=== PATIENT | male | born 1990 | race Caucasian/White ===

== ENCOUNTER 2018-10-05 17:54 | Emergency (ER) | payer BC, SELFPAY ==
[2018-10-05 17:55] VITALS: BP 138/86; PULSE 77; RESP 15; TEMP 37.2; O2SAT 98; BMI 19.5
[2018-10-05 19:21] VITALS: BP 136/82; PULSE 77; RESP 18; TEMP 37; O2SAT 98
[2018-10-05] MEDS: 0.9% Normal Saline 1,000 ML 150 ML IV (20:06)
[2018-10-05 20:22] LABS: Absolute Neutrophil Count 3.4 X10^3/uL (2.0-7.7); Basophil# 0.04 X10^3/uL; Basophil% 0.7 % (0-1); Eosinophil# 0.11 X10^3/uL; Eosinophils% 1.9 % (0-5); Hematocrit 45.3 % (40-54); Hemoglobin 15.2 g/dl (13.0-16.5); Lymphocyte % 27.6 % (19-41); Mean Corp Hgb Conc 33.6 g/gl (32-36); Mean Corpuscular Hgb 30.5 pg (27.0-32.0); Mean Platelet Vol. 9.1 fl (6.2-12.0); Monocyte# 0.67 X10^3/uL; Monocyte% 11.6 % (0-10); Neutrophil # 3.37 X10^3/uL (2.7-7.7); POSITIVE COUNT NO; POSITIVE DIFFERENTIAL NO; POSITIVE MORPHOLOGY NO; Platelet Count 194 K/mm3 (150-450); RBC Distribution Width CV 13.5 % (11.6-14.6); RBC Distribution Width SD 44.6 fl (35.1-43.9); Red Blood Count 4.98 M/mm3 (4.6-6.2); White Blood Count 5.8 K/mm3 (4.4-11.0)
[2018-10-05 20:33] LABS: Anion Gap 1 (5-15); BUN 15 mg/dL (7-18); BUN/Creat Ratio 16.4 RATIO (10-20); Chloride 105 mmol/L (98-107); Creatinine, Serum 0.92 mg/dL (0.70-1.30); EST Glomerular Filtration Rate 104 mL/min (>60); Est Glom Filt Rate - Afr Amer 125 mL/min (>60); Estimated Creatinine Clearance 103.37 ml/min; Glucose 98 mg/dL (74-106); Sodium Level 138 mmol/L (136-145)
--- NOTE | 2018-10-05 20:42 | ED.RN ---
PHARMACIST STATES WE DO NOT HAVE SPORANOX HERE. DR. GUERIN AWARE.
[2018-10-05 21:00] VITALS: BP 129/76; PULSE 79; RESP 18; TEMP 37; O2SAT 99
--- NOTE | 2018-10-05 21:05 | ED.VISSUMM ---
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 He states he has had worsening infection to the right foot for quite some time but it got a lot worse over the past 1 to 2 weeks. He reports occasional chills. He denies fever. He is not a known diabetic. Physical Examination: Vital signs are unremarkable. He is afebrile. Patient sitting upright in bed no acute distress. He is nontoxic appearing. Heart is regular rate and rhythm. Lung sounds are clear. Abdomen is soft and nontender. Lower extremity examination was mild tinea pedis to the left foot. He has moderate tinea pedis to the right foot with a 6 x 3 cm area of excoriation on the ball of his foot. There is no obvious sign of secondary bacterial infection at this time. Test Results: CBC and chemistry studies are unremarkable. Emergency Department Course and Treatment: Patient is given a dose of the clindamycin along with Diflucan. He is given prescriptions for clindamycin, Diflucan which he will take once a week for the next 2 weeks, and clotrimazole cream. He was instructed to use the cream twice a day for the next 4 weeks. Treatment Plan: [] Disposition: Discharge Impression: Tinea pedis This note was generated with [employer] dictation software. It may contain incorrect words, spelling, and punctuation that were not noted in review of the chart prior to signing ED Disposition - Plan for ED Patient: Disposition: Home or Assisted Living Instructions: ED Infec Skin Fungal Tinea Prescriptions: Fluconazole 150 mg PO QWEEK #2 tablet Clotrimazole [Athlete's Foot] 1 applic TP BID #1 tube Clindamycin [Cleocin] 300 mg PO 4X/DAY #80 capsule Referrals: Elton Rojas MD [STAFF PHYSICIAN] - As Needed
[2018-10-05] MEDS: FLUCONAZOLE 150 MG TABLET PO (21:35)
[2018-10-05 21:36] VITALS: BP 129/76
== END 2018-10-05 21:36 | disposition home or self-care (01) ==
PROVIDERS: Emergency Provider Emergency Medicine; Family Provider Pediatrics; PCP Pediatrics
DX: B35.3 Tinea pedis (principal); Z87.891 Personal history of nicotine dependence; F12.90 Cannabis use, unspecified, uncomplicated
CPT/HCPCS: 80048; 85025; 96365; 99283; J7030; A4216

== ENCOUNTER → 2018-11-07 | Outpatient (CLI) | payer BC, SELFPAY ==
[2018-11-07 10:16] LABS: Absolute Lymphocyte Count 2.37 X10^3/uL (0.83-4.51); Absolute Neutrophil Count 1.8 X10^3/uL (2.0-7.7); Basophil# 0.05 X10^3/uL; Eosinophil# 0.11 X10^3/uL; Eosinophils% 2.2 % (0-5); Hematocrit 45.4 % (40-54); Hemoglobin 15.1 g/dL (13.0-16.5); Lymphocyte # 2.37 X10^3/ul (4.0); Lymphocyte % 47.2 % (19-41); Mean Corp Hgb Conc 33.3 g/dL (32-36); Mean Corpuscular Hgb 30.3 pg (27.0-32.0); Mean Corpuscular Volume 91.2 fL (80-94); Mean Platelet Vol. 10.1 fl (6.2-12.0); Monocyte# 0.69 X10^3/uL; Monocyte% 13.7 % (0-10); Neutrophil # 1.79 X10^3/uL (2.7-7.7); Neutrophil % 35.7 % (47-70); Platelet Count 213 K/mm3 (150-450); RBC Distribution Width CV 13.3 % (11.6-14.6); RBC Distribution Width SD 45.1 fl (35.1-43.9); Red Blood Count 4.98 M/mm3 (4.6-6.2)
[2018-11-07 10:47] LABS: ALB/GLOB Ratio 1.4 RATIO (0.9-2.4); AST(SGOT) 18 U/L (15-37); Alanine Aminotransfer ALT/SGPT 19 U/L (16-61); Alkaline Phosphatase 67 U/L (45-117); Anion Gap 4 (5-15); BUN 20 mg/dL (7-18); BUN/Creat Ratio 23.3 RATIO (10-20); Calcium,Total 9.2 mg/dL (8.5-10.1); Chloride 105 mmol/L (98-107); Cholesterol 155 mg/dL (200); Creatinine, Serum 0.86 mg/dL (0.70-1.30); EST Glomerular Filtration Rate 112 mL/min (>60); Est Glom Filt Rate - Afr Amer 135 mL/min (>60); Globulin 2.8 g/dL (2.2-4.2); Glucose 87 mg/dL (74-106); High Density Lipoprotein 54 mg/dL; Potassium 4.3 mmol/L (3.5-5.1); Protein, Total 6.8 g/dL (6.4-8.2); Sodium Level 138 mmol/L (136-145)
== END | disposition home or self-care (01) ==
LOC: MFPLAB 08:21
PROVIDERS: Family Provider Family Medicine; PCP Family Medicine; Referring Provider Family Medicine; Visit Provider Family Medicine
DX: B35.3 Tinea pedis (principal); F12.90 Cannabis use, unspecified, uncomplicated; Z13.220 Encounter for screening for lipoid disorders
CPT/HCPCS: 36415; 80053; 82465; 83718; 85025

== ENCOUNTER → 2019-06-27 08:12 | Outpatient (CLI) | payer OTHER, SELFPAY ==
[2019-06-27 10:29] LABS: Glucose 77 mg/dL (74-106); T4 Free Direct 1.32 ng/dL (0.76-1.46); Thyroid Stim Hormone (TSH) 1.73 uIU/mL (0.358-3.74)
[2019-06-27 11:38] LABS: T3 Total - Triiodothyronine 1.59 ng/mL (0.6-1.81)
[2019-06-28 14:07] LABS: Thyroid Peroxidase AB < 9 IU/mL (0-34)
== END ==
PROVIDERS: PCP Family Medicine; Referring Provider Family Medicine; Visit Provider Dermatology Pediatric Dermatology
DX: E05.90 Thyrotoxicosis, unspecified without thyrotoxic crisis or storm (principal); L74.513 Primary focal hyperhidrosis, soles; L74.512 Primary focal hyperhidrosis, palms; L40.0 Psoriasis vulgaris
CPT/HCPCS: 36415; 82947; 84439; 84443; 84480; 86376